=== PATIENT | male | born 1970 | race Caucasian/White ===

== ENCOUNTER → 2024-10-14 | Day surgery (SDC) | payer MEDICAID ==
[~2024-10-14] VITALS: Ht 165.1 cm; Wt 67.1 kg
[~2024-10-14] MED LIST: BALANCED SALT IRRIG SOLN COMB1 500ML OP NR; CYCLOPENTOLATE HCL 1% OPHTH DROPS 2ML RIGHTEYE NR; FENTANYL CITRATE/PF 50MCG/ML 2ML VIAL ONE; FERR324T4 PO; HYALURONATE SODIUM 10MG/ML 0.55ML SYRINGE IO ONE; MIDAZOLAM HCL 2 MG/2 ML VIAL ONE; ONDANSETRON HCL 4MG/2ML INJ IV PRN; PHENYLEPHRINE HCL 10% OPHTH DROPS 5ML RIGHTEYE NR; PROPOFOL 200MG/20ML VIAL IV ONE; SODIUM CHLORIDE 0.9% 1,000 ML IV SCH; SPIR25TA6 PO; TROPICAMIDE 1% OPHTH DROPS 15ML RIGHTEYE NR; TRYPAN BLUE 0.5 ML DISP.SYRIN IO ONE
[2024-10-14 07:18] LABS: BASOPHILS % 0.4 % (0.0-2.0); EOSINOPHILS % 8.2 % (0.0-5.0); HEMATOCRIT. 42.2 % (42.0-52.0); HEMOGLOBIN. 14.1 g/dL (14.0-18.0); LYMPHOCYTES % 34.3 % (20.0-50.0); MEAN PLATELET VOLUME 9.1 fl (7.4-10.4); MONOCYTES % 10.8 % (2.0-8.0); NEUTROPHILS % 46.3 % (40.0-76.0); PLATELET 99 x1000/uL (130-400); RED BLOOD CELL COUNT 4.91 mill/uL (4.7-6.1); RED CELL DISTRIBUTION WIDTH 15.0 % (11.6-14.6)
[2024-10-14 07:29] LABS: CREATININE 0.7 mg/dL (0.6-1.3); UREA NITROGEN BLOOD 10 mg/dL (9-23)
== END | disposition home or self-care (01) ==
LOC: OR 06:42
PROVIDERS: ATTEND Ophthalmology
DX: H25.21 Age-related cataract, morgagnian type, right eye (principal); I10 Essential (primary) hypertension; Z86.2 Personal history of diseases of the blood and blood-forming organs and certain disorders involving the immune mechanism; Z79.899 Other long term (current) drug therapy; Z98.890 Other specified postprocedural states
CPT/HCPCS: 66982; 80048; 85025; 36415; 93005; J3010; J2250; J2704; J3490; Q9957; V2632